=== PATIENT | male | born 1960 | race Caucasian/White ===

== ENCOUNTER 2017-04-04 00:54 | Emergency (ER) | payer BC ==
[~2017-04-04] VITALS: Ht 172.7 cm; Wt 104.0 kg
[2017-04-04] MEDS ORDERED: KETOROLAC 60MG/2ML VIAL IM ONE (04:00)
[2017-04-04 05:20] VITALS: BP 148/72
== END 2017-04-04 05:30 | disposition home or self-care (01) ==
LOC: ER 03:08
DX: S40.811A Abrasion of right upper arm, initial encounter (principal); V49.9XXA Car occupant (driver) (passenger) injured in unspecified traffic accident, initial encounter; Y93.89 Activity, other specified; Y92.410 Unspecified street and highway as the place of occurrence of the external cause; Y99.8 Other external cause status
CPT/HCPCS: 73000; 96372; 99284; J1885; Z7610